=== PATIENT | female | born 1945 | race Caucasian/White ===

== ENCOUNTER 2020-07-23 19:41 | Emergency (ER) | payer MEDICARE, SELFPAY ==
--- NOTE | ~2020-07-23 | XR_ITS ---
EXAMINATION: XR shoulder LT min 2V EXAM DATE: 07/23/2020 20:29 INDICATION: Initial encounter following injury, with pain of the left shoulder. TECHNIQUE: Frontal and lateral projections of the left shoulder. There is no prior study for compar dagmar. FINDINGS: Acute closed posttraumatic comminuted left humeral neck and greater tuberosity fractures. Overlying soft tissue swelling. The humeral head is not dislocated. IMPRESSION: Acute comminuted left humeral neck and greater tuberosity fractures. Reviewed, dictated and finalized at location A. IMPRESSION: Acute comminuted left humeral neck and greater tuberosity fracture s.
[2020-07-23 20:08] VITALS: BP 101/60; PULSE 57; RESP 18; TEMP 35.7; O2SAT 97
--- NOTE | 2020-07-23 21:09 | ED.UPPEXIN ---
HPI - Extremity Injury (Upper) General Chief Complaint: Extremity Injury, Upper Stated Complaint: fell/ left shoulder pain Time Seen by Provider: 07/23/20 20:17 Source: patient Mode of arrival: wheelchair Limitations: no limitations History of Present Illness HPI narrative: Patient is a 74 year old female who presents with left shoulder pain. Patient reports she was walking up ramp to home when she fell, landing on left arm and shoulder. She denies LOC, denies other injuries. Patient reports unable to move extremity at this time. She denies numbness and tingling or loss of sensation. She reports pain is 9/10. Denies use of over the counter medications prior to arrival. Related Data Allergies Allergy/AdvReac Type Severity Reaction Status Date / Time No Known Allergies Allergy Mild Verified 01/06/14 18:53 Review of Systems Review of Systems: Narrative: CONSTITUTIONAL: Denies fever, chills, or sweats. EYES: Denies visual changes, redness, or discharge. ENT: Denies rhinorrhea, congestion, sore throat, or otalgia. CARDIOVASCULAR: Denies chest pain, palpitations, or edema. RESPIRATORY: Denies cough or dyspnea. GASTROINTESTINAL: Denies abdominal pain, nausea, vomiting, or diarrhea. GENITOURINARY: Denies dysuria or hematuria. SKIN: Denies rash or itching. MUSCULOSKELETAL: Left arm pain NEUROLOGIC: Denies headache, numbness, dizziness, or weakness. PSYCHIATRIC: Denies anxiety or depression. [facility] Past Medical History Medical History Anxiety Depression HTN (hypertension) Social History Social History Smoking status: Never smoker Alcohol intake: never Substance use: never Living arrangements: with family Occupation/Education: occupation Comments At the time of signature, I have reviewed and agree with nursing past medical, surgical, social, and family history unless otherwise noted. Please see nursing chart for further information. There is no relevant family history pertinent to the presenting complaint. Exam Narrative: Exam Narrative: GENERAL: Well-appearing, well-nourished, and in no acute distress. HEAD: Normocephalic, atraumatic. EYES: EOMI. No redness or drainage. Conjunctiva are normal. ENT: Mucous membranes pink and moist. CHEST: No respiratory distress. Clear to auscultation. HEART: Regular rate and rhythm. No murmur appreciated. Normal peripheral pulses. EXTREMITIES: Tenderness with palpation to right upper arm, no visible deformity, distal sensation intact, good capillary refill SKIN: Warm, dry, no rash. NEURO: No focal deficits. Alert and oriented x3. Gait steady. PSYCH: Normal affect. No signs of depression or anxiety. Course Vital Signs Vital signs: Vital Signs Temperature 35.7 C L 07/23/20 20:08 Pulse Rate 57 L 07/23/20 20:08 Respiratory Rate 18 07/23/20 20:08 Blood Pressure 101/60 07/23/20 20:08 Pulse Oximetry 97 07/23/20 20:08 Temperature 35.7 C L 07/23/20 20:08 Pulse Rate 57 L 07/23/20 20:08 Respiratory Rate 18 07/23/20 20:08 Blood Pressure 101/60 07/23/20 20:08 Pulse Oximetry 97 07/23/20 20:08 Reviewed MDM - Extremity Injury (Upper) MDM Narrative Medical decision making narrative: Patient is humeral neck fracture. Patient placed in splint, Ortho follow-up given. Discussed pain management with patient and calling and following up with Ortho in the a.m. Patient agrees with plan of care. Patient stable for discharge to home with outpatient follow-up as discussed. Differential Diagnosis Differential diagnosis: Likely dislocation of shoulder, fracture of humerus and fracture of clavicle Imaging Data Radiologist's impression: ITS Impressions Shoulder X-Ray 07/23/20 20:32 IMPRESSION: Acute comminuted left humeral neck and greater tuberosity fractures. Critical Care Time Critical Care Time Critical Care Time: No Discharg
[2020-07-23] MEDS: MORPHINE SULFATE (*CRX) 4 MG/ML INJ IM (21:14)
[2020-07-23] MEDS: ONDANSETRON HCL ODT 4 MG TABLET PO (21:14)
[2020-07-23 21:37] VITALS: BP 121/58; PULSE 60; RESP 18; O2SAT 98
== END 2020-07-23 21:37 | disposition home or self-care (01) ==
PROVIDERS: Emergency Provider Nurse Practitioner; PCP Internal Medicine
DX: S42.252A Displaced fracture of greater tuberosity of left humerus, initial encounter for closed fracture (principal); S42.212A Unspecified displaced fracture of surgical neck of left humerus, initial encounter for closed fracture; I10 Essential (primary) hypertension; W01.0XXA Fall on same level from slipping, tripping and stumbling without subsequent striking against object, initial encounter
CPT/HCPCS: 73030; 96372; 99284; A4565; A9270; J2270

== ENCOUNTER 2020-08-06 10:54 | Outpatient (CLI) | payer MEDICARE, SELFPAY ==
--- NOTE | ~2020-08-06 | XR_ITS ---
EXAMINATION: XR shoulder LT min 2V DATE: 08/06/2020 11:41 INDICATION: Proximal left humerus fracture. TECHNIQUE: 2 views of left shoulder on 3 radiographs were obtained. COMPARISON: Left shoulder radiographs 07/23/2020 FINDINGS: There is a comminuted fracture of proximal left humerus with displaced fractures at the gre ater tuberosity and surgical neck. The main distal fracture fragment demonstrates 17 mm medial displa cement and impaction. 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 The glenohumeral joint is normal, but not well profiled. IMPRESSION: 1. Comminuted three-part fracture of proximal left humerus. Reviewed, dictated and finalized at location B.
== END 2020-08-06 10:55 | disposition home or self-care (01) ==
LOC: ANHIMG 11:06
PROVIDERS: PCP Internal Medicine
DX: S42.202A Unspecified fracture of upper end of left humerus, initial encounter for closed fracture (principal); M19.012 Primary osteoarthritis, left shoulder
CPT/HCPCS: 73030

== ENCOUNTER 2020-09-03 11:34 | Outpatient (CLI) | payer MEDICARE, SELFPAY ==
--- NOTE | ~2020-09-03 | XR_ITS ---
EXAMINATION: XR shoulder LT min 2V INDICATION: Shoulder pain, left proximal humerus fracture TECHNIQUE: Two views of the left shoulder are submitted. COMPARISON: 08/07/2019 FINDINGS: Again noted is a comminuted three-part fracture of the proximal humerus. There is 17 mm of unchanged medial displacement of the largest distal fracture fragment. Alignment at the glenohumeral and acromioclavicular joints is normal. A small amount of calcified callus has developed. Soft tissue s are unremarkable. IMPRESSION: 1. Comminuted three part fracture of the proximal left humerus with displacement and early bony heali ng. Reviewed, dictated and finalized at location A. IMPRESSION: 1. Comminuted three part fracture of the proximal left humerus with displacemen t and early bony healing.
== END 2020-09-03 11:35 | disposition home or self-care (01) ==
LOC: ANHIMG 11:42
PROVIDERS: PCP Internal Medicine
DX: S42.202A Unspecified fracture of upper end of left humerus, initial encounter for closed fracture (principal)
CPT/HCPCS: 73030

== ENCOUNTER 2020-10-15 11:58 | Outpatient (CLI) | payer MEDICARE, SELFPAY ==
--- NOTE | ~2020-10-15 | XR_ITS ---
XR shoulder LT min 2V DATE: 10/15/2020 12:51 INDICATION: Left shoulder pain. Left humeral fracture 3 months ago. TECHNIQUE: 2 views COMPARISON: 09/03/2020 left shoulder FINDINGS: There is diffuse osteopenia. Left cervical rib. Normal alignment at the left acromioclavicular joint. There is a healing left surgical neck fracture with anterior minimal medial displacement of the dista l fracture fragment. IMPRESSION: Healing displaced surgical neck fracture Diffuse osteopenia Left cervical rib Reviewed, dictated and finalized at location B.
== END 2020-10-15 11:59 | disposition home or self-care (01) ==
PROVIDERS: PCP Internal Medicine
DX: M25.512 Pain in left shoulder (principal); S42.292D Other displaced fracture of upper end of left humerus, subsequent encounter for fracture with routine healing; M85.89 Other specified disorders of bone density and structure, multiple sites; Q76.5 Cervical rib
CPT/HCPCS: 73030

== ENCOUNTER 2021-10-02 12:51 | Outpatient (CLI) | payer MEDICARE, SELFPAY ==
--- NOTE | ~2021-10-02 | XR_ITS ---
XR shoulder LT min 2V DATE: 10/02/2021 13:16 INDICATION: Left shoulder pain TECHNIQUE: AP and axillary views only per referring physician order COMPARISON: 11/11/2020 left shoulder FINDINGS: There is old transverse surgical neck fracture deformity of the proximal left humerus with stable posterior medial displacement, unchanged since 10/15/2020. Osteopenia. Normal alignment at the acromioclavicular and glenohumeral joints. Left cervical rib. IMPRESSION: Old healed left surgical neck fracture deformity Osteopenia Left cervical rib Reviewed, dictated and finalized at location B.
== END 2021-10-02 12:52 | disposition home or self-care (01) ==
PROVIDERS: PCP Internal Medicine; Visit Provider Specialist
DX: M85.852 Other specified disorders of bone density and structure, left thigh (principal)
CPT/HCPCS: 73030

== ENCOUNTER 2022-03-14 09:29 | Emergency (ER) | payer MEDICARE, SELFPAY ==
--- NOTE | ~2022-03-14 | XR_ITS ---
EXAMINATION: XR chest 2V DATE: 03/14/2022 11:30 INDICATION: Shortness of breath. Cough. TECHNIQUE: Frontal and lateral views of the chest were obtained. COMPARISON: None. FINDINGS: The chest demonstrates clear lungs without pneumonia, pleural effusion, or pneumothorax. Th e heart size is normal. IMPRESSION: 1. No acute cardiopulmonary disease. Reviewed, dictated and finalized at location A. [employer]
[2022-03-14 09:41] VITALS: BP 168/75; PULSE 64; RESP 18; TEMP 36.6; O2SAT 99
--- NOTE | 2022-03-14 10:00 | ED.GENADULT ---
HPI - General Adult General Chief complaint: Upper Respiratory Infection Stated complaint: wheezing/coug/congestion Time Seen by Provider: 03/14/22 10:01 Source: patient Mode of arrival: ambulatory Limitations: no limitations History of Present Illness HPI narrative: 76-year-old female patient presents to the [facility] with complaints of coughing, wheezing, shortness of breath for the past 2 weeks. Patient states she did reach out to her primary doctor and has been put on a Z-Alejandro along with 40 mg of prednisone for 5 days. Patient states she continued to have symptoms reach back out to her doctor and was put on another antibiotic. Patient states she feels like there is an elephant sitting on her chest at that is there all the time. Patient states she continues to have coughing feels like she is short of breath and wheezing. Patient does have history of asthma and high blood pressure denies any smoking or COPD. Patient states she does do her Symbicort inhaler every day however has only been using her rescue inhaler about once a day. Related Data Home Medications Medication Instructions Recorded Confirmed albuterol sulfate 90 mcg/actuation 1 inh inhalation QID 03/14/22 03/14/22 aerosol inhaler (Ventolin HFA) budesonide-formoterol HFA 80 1 inh inhalation DIRECTED 03/14/22 03/14/22 mcg-4.5 mcg/actuation aerosol inhaler (Symbicort) duloxetine 60 mg capsule,delayed 60 mg PO DAILY 03/14/22 03/14/22 release losartan 100 mg tablet 100 mg DAILY 03/14/22 03/14/22 metoprolol tartrate 25 mg tablet 25 mg BID 03/14/22 03/14/22 montelukast 10 mg tablet 10 mg DAILY 03/14/22 03/14/22 rosuvastatin 10 mg tablet 10 mg HS 03/14/22 03/14/22 Allergies Allergy/AdvReac Type Severity Reaction Status Date / Time lisinopril AdvReac Cough Verified 03/14/22 09:59 Review of Systems Review of Systems: CONSTITUTIONAL: Denies fever, chills, or sweats. EYES: Denies visual changes, redness, or discharge. ENT: Denies rhinorrhea, congestion, sore throat, or otalgia. CARDIOVASCULAR: Positive upper chest pain, denies palpitations, or edema. RESPIRATORY: Positive cough with dyspnea. GASTROINTESTINAL: Denies abdominal pain, nausea, vomiting, or diarrhea. GENITOURINARY: Denies dysuria or hematuria. SKIN: Denies rash or itching. MUSCULOSKELETAL: Denies back pain, joint pain, or myalgia. NEUROLOGIC: Denies headache, numbness, or weakness. PSYCHIATRIC: Denies anxiety or depression. [facility] Past Medical History Medical History (Updated 03/14/22 @ 12:02 by ISAEL Ramachandran) Anxiety Asthma Depression HTN (hypertension) Social History Social History Smoking status: Never smoker Alcohol intake: never Substance use: never Comments At the time of my signature I agree with nursing past medical history, surgical, social, and family history. There is no relevant family history pertinent to the presenting complaint. Exam Narrative: GENERAL: Well-appearing, well-nourished, and in no acute distress. HEAD: Normocephalic, atraumatic. EYES: PERRLA and EOMI. ENT: Nares clear, no rhinorrhea or epistaxis. Mucous membranes moist. NECK: Supple. No lymphadenopathy CHEST: Patient has coarse lung sounds to bilateral upper lower lobes. No respiratory distress. No tripoding noted. Patient able talk in clear complete sentences. HEART: Regular rate and rhythm. No murmur heard. Normal peripheral pulses. ABDOMEN: Soft, nontender, nondistended, normal active bowel sounds. EXTREMITIES: Normal range of motion. No edema. SKIN: Warm, dry, no rash. NEURO: No focal deficits. Alert and oriented x3. Course Course Level of Care: Express Care Visit Reevaluation(s) Reevaluation #1: Re-evaluate patient after her neb treatment had completed. Patient states she is feeling better after the neb treatment. Patient continues to have some wheezing and coarseness to bilateral upper lower lobes but it does socorro
[2022-03-14] MEDS: IPRATROPIUM BR 0.02% INH SOLN 0.5 MG/2.5 ML VIAL INHALATION (11:16)
[2022-03-14] MEDS: ALBUTEROL SULFATE NEB 2.5 MG/3 ML INH INHALATION (11:16)
--- NOTE | 2022-03-14 12:05 | ECG_ITS ---
Measurements Intervals [place] Rate: 69 P: 63 DC: 162 QRS: 14 QRSD: 82 T: 47 QT: 386 QTc: 415 Interpretive Statements SINUS RHYTHM BASELINE ARTIFACT- I, III, AVL NORMAL ECG NO PREVIOUS ECG AVAILABLE FOR COMPARISON Electronically Signed On 03-15-2022 7:29:01 [employer] by Rod Mason D.O.
== END 2022-03-14 12:08 | disposition home or self-care (01) ==
PROVIDERS: Emergency Provider Nurse Practitioner Family
DX: J45.901 Unspecified asthma with (acute) exacerbation (principal); I10 Essential (primary) hypertension
CPT/HCPCS: 71046; 93005; 94640; 99213; G0463

== ENCOUNTER 2022-11-23 10:06 | Outpatient (CLI) | payer MEDICARE, SELFPAY ==
--- NOTE | ~2022-11-23 | XR_ITS ---
EXAMINATION: XR chest 2V 11/23/2022 10:31 INDICATION: Cough PROCEDURE: 2 view chest COMPARISON: 03/14/2022 FINDINGS: The lungs are clear. The cardiomediastinal silhouette is within normal limits. There are no pleural effusions. There is no pneumothorax suspected. IMPRESSION: 1: NO ACUTE CARDIOPULMONARY DISEASE. Reviewed, dictated and finalized at location B.
== END 2022-11-23 10:07 | disposition home or self-care (01) ==
PROVIDERS: PCP Internal Medicine
DX: J20.9 Acute bronchitis, unspecified (principal)
CPT/HCPCS: 71046